=== PATIENT | female | born 1970 | race Two or more races ===

== ENCOUNTER 2018-10-27 22:26 | Emergency (ER) | payer SELFPAY ==
[~2018-10-27] VITALS: Ht 165.1 cm; Wt 73.5 kg
[2018-10-27 23:23] LABS: Urine Blood 2+ /uL (Negative); Urine Mucus FEW (None Seen); Urine Specific Gravity 1.026 (1.001-1.035); Urine WBC 31 /hpf (0 - 5)
[2018-10-27 23:28] LABS: Urine Bacteria MOD /hpf (None Seen)
[2018-10-28 05:26] VITALS: BP 146/91
[2018-10-28] MEDS ORDERED: PHENAZOPYRIDINE HCL 100 MG TAB PO ONE (05:30)
[2018-10-28] MEDS ORDERED: ACETAMINOPHEN 325 MG TAB PO ONE (05:30)
[2018-10-28] MEDS ORDERED: cefTRIAXone SOD 1,000 MG VL IM ONE (05:30)
[2018-10-28] MEDS ORDERED: LIDOCAINE 1% HCL (LOCAL ANESTH.) INJ 20ML MDV IJ ONE (05:45)
== END 2018-10-28 06:02 | disposition home or self-care (01) ==
LOC: ER 22:30
DX: N39.0 Urinary tract infection, site not specified (principal); F17.210 Nicotine dependence, cigarettes, uncomplicated
CPT/HCPCS: 81001; 96372; 99283; J0696; J2001